=== PATIENT | male | born 1990 | race Caucasian/White ===

== ENCOUNTER 2018-04-01 23:51 | Observation (INO) | payer SELFPAY ==
[~2018-04-01] VITALS: Ht 180.3 cm; Wt 90.9 kg
--- NOTE | ~2018-04-01 | CN ---
PATIENT NAME:KIMMY QUINONEZ MEDICAL RECORD: [id number] : 89 LOCATION:[facility]13 ADMIT DATE: 04/02/18 ACCOUNT: [id number] CONSULTING PHYSICIAN: KATRIN CRUZ MD REFERRING PHYSICIAN: RENO CURRAN MD DATE OF CONSULTATION: 04/02/2018 PSYCHIATRIC CONSULTATION IDENTIFYING DATA: The patient is 27 years old and he is admitted to the hospital on a voluntary basis. CHIEF COMPLAINT: Overdose. HISTORY OF PRESENT ILLNESS: The patient endorses numerous neurovegetative depressive symptoms that have been around for months. He recently has had some acute stressors. 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 Apparently, he was handling some wires that were hot and did not know it and although he was not electrocuted, the company he worked for felt he should have known it and fired him. Because of this, he lost his apartment because he could not pay the rent and he lost his car because he could not make the payments. He had to go home to live with his parents and feels humiliated. A friend had given him some trazodone to assist with sleeping and he took all 6 of them. He believed the 6 tablets would be enough to kill him and it was his intention to kill himself at that time, feeling helpless and hopeless. Shortly after having taken the pills, he told his father what he had done. He now denies that he would seek to harm himself, but he feels ambivalent about it and is seriously depressed. He is not psychotic. He does not use drugs or alcohol and has no legal entanglements. He does not smoke cigarettes. MENTAL STATUS EXAMINATION: The patient is alert and oriented to person, place, time and situation. His mood is depressed. His affect is constricted. Thought processes are circumstantial. Memory, concentration, and abstraction abilities are moderately impaired and he denies any active intent to harm himself or others as well as any overt psychotic symptoms. ASSETS: Supportive family members. LIABILITIES: Limited insight. DIAGNOSTIC IMPRESSION: 1. Major depression, severe, recurrent without psychotic features. 2. Status post heterocyclic overdose. PLAN: The patient currently is wanting to be hospitalized and I am in agreement with this. He has severe depressive symptoms, they are longstanding. This was not a situational event, although there were circumstances described above that pushed him to the edge. He has had thoughts of this before, even though he has not done it. He very much feels helpless, hopeless, lost and distressed. I am strongly recommending inpatient hospitalization and he is agreeable to this. Obviously followup should be based on what happens during the hospitalization and I will leave that to the receiving facility and the patient to work that out between them. On the whole, I think his long-term prognosis is good if he responds to treatment and has appropriate outpatient mental health followup. CONSULT REPORT [id number] KIMMY QUINONEZ TRANSINT:[id number] Voice Confirmation ID: [id number] DOCUMENT ID: [id number] KATRIN CRUZ MD at 1354 CC: [id number] DICTATION DATE: 04/02/181703 STENOTYPIST: 04/02/18 171 DIS IN 04/02/18 [facility] [address] [place] [address]
[2018-04-02] VITALS (14 sets, daily range): BP systolic 96–128; BP diastolic 62–84; Ht 180.3 cm; Wt 90.9 kg
[2018-04-02 00:27] LABS: UDS - AMPHET NEGATIVE QUAL (NEGATIVE); UDS - BARB NEGATIVE QUAL (NEGATIVE); UDS - BENZO NEGATIVE QUAL (NEGATIVE); UDS - COCAINE NEGATIVE QUAL (NEGATIVE); UDS - OPIATE NEGATIVE QUAL (NEGATIVE); UDS - PCP NEGATIVE QUAL (NEGATIVE); UDS - THC NEGATIVE QUAL (NEGATIVE)
[2018-04-02 00:33] LABS: HEMATOCRIT 45.9 % (42.0-54.0); HEMOGLOBIN 15.5 g/dL (13.5-17.5); LYMPHOCYTES 29.4 % (15-50); MCH 26.8 pg (26.0-34.0); MCHC 33.8 g/dL (31.0-37.0); MCV 79.4 fL (80.0-100.0); MEAN PLATELET VOLUME 9.5 fL (7.4-10.4); NEUTROPHILS 58.6 % (40-80); PLATELET COUNT 257 10x3/uL (130-400); RBC 5.78 10x6/uL (4.20-6.10); RDW 13.8 % (11.5-14.5); WBC 6.7 10x3/uL (4.8-10.8)
[2018-04-02 00:34] LABS: APPEARANCE CLOUDY (CLEAR); BILIRUBIN NEGATIVE (NEGATIVE); COLOR YELLOW (YELLOW); GLUCOSE NEGATIVE (NEGATIVE); KETONE LARGE mg/dL (NEGATIVE); NITRITE NEGATIVE (NEGATIVE); PROTEIN TRACE mg/dL (NEGATIVE); UROBILINOGEN NORMAL (NORMAL)
[2018-04-02 00:35] LABS: BACTERIA MODERATE /hpf (NONE SEEN); EPITHELIAL CELLS 0-5 /hpf (0-5); MUCUS >1+ /lpf (NONE SEEN); RED CELLS - URINE 0-5 /hpf (0-5)
[2018-04-02 00:49] LABS: ALBUMIN 4.2 g/dL (3.4-5.0); ALKALINE PHOSPHATASE 36 U/L (46-116); ALT (SGPT) 34 U/L (10-68); BILIRUBIN - TOTAL 1.06 mg/dL (0.2-1.3); CALC OSMOLALITY 274 mosm/kg (275-300); CALCIUM 8.4 mg/dL (8.5-10.1); CARBON DIOXIDE 27.2 mmol/L (21.0-32.0); CHLORIDE - SERUM 105 mmol/L (98-107); CREATININE - SERUM 0.9 mg/dL (0.6-1.3); GLUCOSE 86 mg/dL (74-106); POTASSIUM - SERUM 3.2 mmol/L (3.5-5.1); PROTEIN - SERUM 6.9 g/dL (6.4-8.2); SODIUM 139 mmol/L (136-145); UREA NITROGEN 8 mg/dL (7-18); eGFR NON AFRICAN AMERICAN > 90 mL/min (90-120)
== END 2018-04-02 21:04 | disposition home or self-care (01) ==
LOC: D.ER 23:51 → OBSVTIME 04-02 03:03 → D.EDHOLD 04-02 03:03 → D.ICU 04-02 03:03
PROVIDERS: Family Medicine
DX: T43.212A Poisoning by selective serotonin and norepinephrine reuptake inhibitors, intentional self-harm, initial encounter (principal); F33.9 Major depressive disorder, recurrent, unspecified